=== PATIENT | female | born 2000 | race Caucasian/White ===

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

== ENCOUNTER 2022-03-30 15:19 | Emergency (ER) | payer OTHER ==
[2022-03-30 15:32] VITALS: BP 115/73; PULSE 78; RESP 18; TEMP 98.1; BMI 26.5
== END 2022-03-30 16:20 | disposition home or self-care (01) ==
LOC: FER 15:19
DX: R09.81 Nasal congestion (principal); Z20.828 Contact with and (suspected) exposure to other viral communicable diseases
CPT/HCPCS: 0241U-QW; 36415; 86308; 99283-25